=== PATIENT | female | born 1980 | race Caucasian/White ===

== ENCOUNTER 2018-11-06 20:28 | Emergency (ER) | payer OTHER ==
[~2018-11-06] VITALS: Ht 165.1 cm; Wt 72.6 kg
[2018-11-06] MEDS ORDERED: GABAPENTIN600 MG ORAL (20:38)
[2018-11-06] MEDS ORDERED: METFORMIN HCL500 M1 ORAL (20:38)
[2018-11-06] MEDS ORDERED: MUPIROCIN22 GM TOPIC (20:38)
[2018-11-06] MEDS ORDERED: CEPHALEXIN500 M1 ORAL (20:38)
[2018-11-06] MEDS ORDERED: PROZAC40 MG ORAL (20:38)
[2018-11-06 20:45] VITALS: BP 137/91
--- NOTE | 2018-11-06 20:45 | NUR ---
ED Nurse Note: PATIENT WALKED IN TO ER C/O ABCESS FROM BUG BITE BEHIND LEFT EAR X1 WEEK. TAKING CEPHALEXIN AND MUPIROCIN WITH NO RELIEF. AAO X4, VSS AT HIS TIME. PATIENT PRESENTED WITH LEISION BEHIND HER LEFT EAR.
[2018-11-06] MEDS ORDERED: BACTRIM DS TAB1 EAC1 ORAL (20:53)
[2018-11-06 20:59] VITALS: BP 137/91
--- NOTE | 2018-11-06 20:59 | NUR ---
ED Nurse Note: Pt cleared by health care Provider for discharge. DC instructions/prescription was given and explained to pt and verbalized understanding of teachings. All medical deviecs such as ID band removed. Pt is AAO x4, ambulatory and left with all personal belongings.
--- NOTE | 2018-11-06 23:48 | Emergency Room Report ---
History of Present Illness General Chief Complaint: Skin Rash/Abscess Source: Patient Present Illness HPI 38-year-old female presents ED for evaluation. Complaining of an abscess behind her left ear. Started one week ago presumably from insect bite. States that she was seen by doctor 2 days ago and was prescribed mupirocin and Keflex. States she is still having pain. Pain is sharp, 8 out of 10, nonradiating. Denies fevers or chills. Denies headache blurry vision. Denies neck stiffness. No other aggravating relieving factors. Denies any other associated symptoms Allergies: Coded Allergies: No Known Allergies (Unverified , 11/06/18) Patient History Past Medical History: none Past Surgical History: none Pertinent Family History: none Social History: Denies: smoking, alcohol use, drug use Last Menstrual Period: 10/21/18 Now: No Immunizations: UTD Reviewed Nursing Documentation: PMH: Agreed; PSxH: Agreed Nursing Documentation-PMH Past Medical History: No History, Except For Review of Systems All Other Systems: negative except mentioned in HPI Physical Exam Vital Signs Date Time Temp Pulse Resp B/P (MAP) Pulse Ox O2 Delivery O2 Flow Rate FiO2 11/06/18 20:30 98.2 89 14 94 Room Air 11/06/18 20:45 137/91 Sp02 EP Interpretation: reviewed, normal General Appearance: no apparent distress, alert, GCS 15, non-toxic Head: normocephalic Eyes: bilateral eye normal inspection, bilateral eye PERRL ENT: hearing grossly normal, normal pharynx, no angioedema, normal voice, TMs + canals normal, other - draining abscess behind L ear. no fluctuance. some discharge noted. no surrounding erythema/induration Neck: full range of motion, supple, no meningismus, supple/symm/no masses Respiratory: normal inspection Cardiovascular #1: normal inspection Gastrointestinal: normal inspection Rectal: deferred Genitourinary: no CVA tenderness Musculoskeletal: normal inspection Neurologic: alert, oriented x3, responsive, motor strength/tone normal, sensory intact, speech normal Psychiatric: normal inspection Skin: warm/dry, well hydrated Lymphatic: normal inspection Medical Decision Making Diagnostic Impression: Primary Impression: Abscess ER Course Hospital Course 38 yo F presents to ED c/o abscess behind L ear Differential diagnoses include: Cellulitis, dermatitis, insect bite, abscess Clinical course Patient placed on stretcher. After initial history, physical exam reveals a female in no acute distress. On exam there is a pustular head with drainage noted behind the left ear. No surrounding erythema or induration. No nuchal rigidity. Patient afebrile, nontoxic appearing. Discussed findings with patient. it appears to be already draining somewhat. There is no indication for I and D at this time. Patient is currently on Keflex and mupirocin. I would recommend adding Bactrim to the regimen. Safe for discharge close outpatient follow-up. states she has a PMD Diagnosis - abscess stable and discharged to home with prescription for bactrim. continue warm compresses and keflex. Instructed to followup with PMD. Instructed return to ED if symptoms recur or worsen Last Vital Signs Date Time Temp Pulse Resp B/P (MAP) Pulse Ox O2 Delivery O2 Flow Rate FiO2 11/06/18 20:59 98.2 14 137/91 94 Room Air 11/06/18 20:30 89 Status: improved Disposition: HOME, SELF-CARE Condition: Stable Scripts Trimethoprim/Sulfamethoxazole 160/800* (BACTRIM DS TABLET*) 1 Each Tablet 1 TAB ORAL Q12H, #14 TAB 0 Refills Prov: Sp Angelo MD 11/06/18 Referrals: NON PHYSICIAN (PCP) Patient Instructions: Abscess Sp Angelo MD November 06, 2018 23:48
== END 2018-11-06 21:30 | disposition home or self-care (01) ==
LOC: EDBD 20:28 → EMR 20:47
DX: H66.42 Suppurative otitis media, unspecified, left ear (principal)
CPT/HCPCS: 99282